=== PATIENT | female | born 2000 | race African-American/Black ===

== ENCOUNTER 2024-01-21 12:47 | Emergency (ER) | payer MEDICAID ==
[~2024-01-21] VITALS: Ht 157.5 cm; Wt 49.9 kg
[2024-01-21 12:58] VITALS: TEMP 98.4; O2SAT 100
[2024-01-21] MEDS ORDERED: IBUPROFEN 600MG TABLET PO ONE (13:15)
[2024-01-21] MEDS: IBUPROFEN 600MG TABLET PO NR (14:55)
[2024-01-21 14:56] VITALS: BP 100/64; PULSE 78; RESP 16; O2SAT 100
== END 2024-01-21 15:26 | disposition home or self-care (01) ==
LOC: ER 13:05
DX: S93.602A Unspecified sprain of left foot, initial encounter (principal); W18.39XA Other fall on same level, initial encounter; Y93.89 Activity, other specified; Y92.89 Other specified places as the place of occurrence of the external cause; Y99.8 Other external cause status
CPT/HCPCS: 73630; 99283